=== PATIENT | female | born 1965 | race African-American/Black ===

== ENCOUNTER → 2021-01-26 | Emergency (ER) | payer OTHER ==
[~2021-01-26] VITALS: Ht 154.9 cm; Wt 171.5 kg
--- NOTE | ~2021-01-26 | EMS ---
[address] [address] EMS Patient Care Report Name: SANA PLUNKETT Room #: REG ANNA Ríos#: [id number] Admission: 01/26/21 Attend Phys: Discharge: Date of : 67 Report #: [id number] THIS REPORT FOR: //name// Report Transmitted: 01/26/2021 11:42 EMS Care Summary [place], [place]/[facility] Incident [id number] @ 01/26/2021 08:35 Incident Location [address] [facility] 213 Patient SANA PLUNKETT Female, 55 Years 1965 Patient Address [address] [place] [id number] Patient History Chronic Obstructive Pulmonary Disease (COPD),Diabetes,Hypertension (HTN),Hyperlipidemia,Gastro-Esophageal Reflux Disease (GERD),Morbid Obesity,Schizophrenia,Depression,Anxiety,Novel Coronavirus (COVID-19), Patient Allergies Penicillin allergy,Haldol,Other drug allergy, Chief Complaint abnormal lab values Disposition Transported No Lights/[place] Dispatch Reason Breathing Problem Transported To [facility] Narrative pt found ambulatory in [facility]. pt is a&o, breathing is mild to moderately labored. pt states she has been Covid positive since . pt lab work came back this morning and her D-Dymer value was high. pt to be eval at [address] [address] EMS Patient Care Report Name: SANA PLUNKETT Room #: REG [facility]..#: [id number] Admission: 01/26/21 Attend Phys: Discharge: Date of : 67 Report #: [id number] [facility], per staff. pt seats self on cot, transport w/o change Initial Vitals @08:47P: 109,R: 24,BP: 135/75,Pain: 10/10,GCS: 15,SpO2: 97,Revised Trauma: 12, Assessments @08:44MENTAL:No Abnormalities,SKIN:No Abnormalities,HEENT:Head/Face: No Abnormalities,LUNG SOUNDS:ABDOMEN:PELVIS//GI:EXTREMITIES:PULSE:NEURO:No Abnormalities, Impression COVID-19 - Confirmed by testing Procedures @08:44 ALS Assessment Response: Unchanged @08:45 Stretcher Response: Unchanged Timeline 08:33,Call Received 08:33,Dispatch Notified 08:35,Dispatched 08:36,En Route 08:40,On Scene 08:44,At Patient 08:44,ALS Assessment,Response: Unchanged 08:45,Stretcher,Response: Unchanged 08:47,BP: 135/75 M,PULSE: 109,RR: 24 R,SPO2: 97 Ox,ETCO2: ,BG: ,PAIN: 10,GCS: 15, 08:48,Depart Scene 08:57,At Destination 09:22,Call Closed Disclaimer v1.1 Copyright 2020 [employer] This EMS Care Summary contains data elements from the applicable legal record (which may be displayed differently). It is designed to provide pertinent information for the following purposes: continuity of care, clinical quality, and state data reporting. The complete legal record is available to ED staff and administrators of the receiving hospital in [facility]'s Patient Tracker. All data is provided "as is."
[2021-01-26 09:35] LABS: ABSOLUTE NEUTROPHILS 4.9 thou/uL (1.4-8.2); BASOPHILS 0.5 % (0.0-2.0); EOSINOPHILS 3.5 % (0.0-3.0); HEMATOCRIT 44.1 % (37.0-47.0); LYMPHOCYTES 22.4 % (24.0-44.0); MCH 27.6 pg (26.0-34.0); MCHC 31.7 g/dL (28.0-37.0); MCV 87.2 fL (80.0-100.0); MONOCYTES 7.2 % (1.0-8.0); PLATELET COUNT 234 thou/uL (150-400); POLYS 66.4 % (36.0-66.0); RBC 5.06 mil/uL (4.20-5.00); RDW 14.1 % (10.5-14.5); WBC 7.4 thou/uL (4.0-11.0)
[2021-01-26 09:42] LABS: CALCIUM 9.4 mg/dL (8.5-10.1); POTASSIUM 4.2 mmol/L (3.5-5.1)
[2021-01-26 12:04] VITALS: BP 117/93
== END ==
LOC: ER 09:03
PROVIDERS: Emergency Medicine
DX: U07.1 COVID-19 (principal); D72.828 Other elevated white blood cell count; J44.9 Chronic obstructive pulmonary disease, unspecified; I10 Essential (primary) hypertension; K21.9 Gastro-esophageal reflux disease without esophagitis; E66.9 Obesity, unspecified; F20.9 Schizophrenia, unspecified; F41.9 Anxiety disorder, unspecified; E11.39 Type 2 diabetes mellitus with other diabetic ophthalmic complication; Z86.718 Personal history of other venous thrombosis and embolism; Z68.45 Body mass index [BMI] 70 or greater, adult; Z86.16 Personal history of COVID-19; Z88.0 Allergy status to penicillin; Z91.02 Food additives allergy status; Z88.5 Allergy status to narcotic agent; Z88.8 Allergy status to other drugs, medicaments and biological substances; Z91.018 Allergy to other foods; Z77.22 Contact with and (suspected) exposure to environmental tobacco smoke (acute) (chronic)

== ENCOUNTER 2021-04-05 20:37 | Emergency (ER) | payer OTHER ==
[~2021-04-05] VITALS: Ht 152.4 cm; Wt 158.8 kg
--- NOTE | ~2021-04-05 | EMS ---
[facility] [address] [place] [address] EMS Patient Care Report Name: SANA PLUNKETT Room #: DEP ANNA Ríos#: [id number] Admission: 04/05/21 Attend Phys: Discharge: 04/06/21 Date of : 67 Report #: [id number] THIS REPORT FOR: //name// Report Transmitted: 04/06/2021 14:02 EMS Care Summary [place], [place]/[facility] Incident [id number] @ 04/05/2021 20:03 Incident Location [address] [facility] Patient SANA PLUNKETT Female, 55 Years 1965 Patient Address [address] [place], [place] [id number] Patient History Chronic Obstructive Pulmonary Disease (COPD),Diabetes,Hypertension (HTN),Hyperlipidemia,Gastro-Esophageal Reflux Disease (GERD),Morbid Obesity,Schizophrenia,Depression,Anxiety,Novel Coronavirus (COVID-19), Patient Allergies Penicillin allergy,Haldol,Other drug allergy, Patient Medications Ibuprofen, Lantus, Acetaminophen, Amlodipine, Gabapentin, Loratadine, Furosemide, Atorvastatin, Chief Complaint BACK PAIN Disposition Transported No Lights/[place] [facility] Reason Falls Transported To [facility] Narrative RESPONDED TO FALL AT [facility]. UPON ARRIVAL PT FOUND LAYING ON LEFT SIDE ON [facility] [address] [place] [address] EMS Patient Care Report Name: SANA PLUNKETT Room #: DEP ANNA Ríos#: [id number] Admission: 04/05/21 Attend Phys: Discharge: 04/06/21 Date of : 67 Report #: [id number] GROUND. PT IS ALERT AND ORIENTED. PT REPORTS TRYING TO STAND UP FROM CHAIR AND FALLING FACE FIRST ONTO GROUND .PT REPORTS BACK AND NECK PAIN. PT REPORTS POSITIVE LOC BUT FALL WAS UNWITNESSED SO UNKNOWN HOW LONG SHE WAS OUT. PT DENIES BLOOD THINNERS. PT HAS NO OBVIOUS INJURIES NOTED TO FACE OR HEAD. PT WAS NOT ABLE TO BE PLASCED IN C COLLAR DUE TO NOT FITTING. PT WAS ROLLED [facility]NTO [facility] WITH C SPINE PRECAUTIONS. PT CARRIED TO COT AND SEATBELTS APPLIED. PT VITALS, IV, 3LEAD AND IV OBTAINED. PT TRANSPORTED TO [facility] WITH NO CHANGES. PT WAS TEAM LIFTED TO BED WITH SPINAL PRECAUTIONS TAKEN HANDRAILS UP AND REPORT GIVEN TO NURSE. Initial Vitals @20:24P: 93,SpO2: 96, @20:19P: 98,R: 18,BP: 142/82,Glucose: 187,SpO2: 93, @20:25P: 95,R: 18,BP: 146/84,Pain: 10/10,GCS: 15,CO: 11,SpO2: 96,Revised Trauma: 12, Assessments @20:15MENTAL:Time Oriented,Event Oriented,Person Oriented,Place Oriented,SKIN:HEENT:Neck/Airway: No Abnormalities,LUNG SOUNDS:General: Diarrhea,ABDOMEN:General: Diarrhea,PELVIS//GI:Rectal Bleeding,EXTREMITIES:Left Arm: No Abnormalities,Right Arm: No Abnormalities,Left Leg: No Abnormalities,Right Leg: No Abnormalities,PULSE:Radial: 2+ Normal,NEURO: Impression Back Pain Procedures @20:15 ALS Assessment Response: UnchangedSucceeded @20:22 3-Lead ECG Response: UnchangedSucceeded @20:20 General Comments Response: Unchanged @20:25 IV Therapy - Saline Lock 5cc (22 ga) Site: Antecubital-Left Response: UnchangedSucceeded Timeline 20:01,Call Received 20:01,Dispatch Notified 20:03,Dispatched 20:04,En Route 20:10,On Scene 20:14,At Patient 20:15,ALS Assessment,Response: UnchangedSucceeded, 20:19,BP: 142/82 M,PULSE: 98,RR: 18 R,SPO2: 93 Ox,ETCO2: ,B,PAIN: ,GCS: , 20:20,General Comments,Response: Unchanged 20:22,3-Lead ECG,Response: UnchangedSucceeded, [facility] [address] [place] [address] EMS Patient Care Report Name: SANA PLUNKETT Room #: DEP [facility].#: [id number] Admission: 04/05/21 Attend Phys: Discharge: 04/06/21 Date of : 67 Report #: [id number] 20:24,BP: / M,PULSE: 93,RR: R,SPO2: 96 Ox,ETCO2: ,BG: ,PAIN: ,GCS: , 20:25,BP: 146/84 M,PULSE: 95,RR: 18 R,SPO2: 96 Ox,ETCO2: ,BG: ,PAIN: 10,GCS: 15, 20:25,IV Therapy - Saline Lock 5cc 22 ga Site: Antecubital-Left,Response: UnchangedSucceeded, 20:26,Depart Scene 20:34,At Destination 20:49,Call Closed Disclaimer v1.1 Copyright 2021 [employer] This EMS Care Summary contains data elements from the applicable legal record (which may be displayed differently). It is designed to provide pertinent information for the following purposes: continuity of care, clinical quality, and state data reporting. The complete legal record is available to ED staff and administrators of the receiving hospital in [employer]'s Patient Tracker. All data is provided "as is."
[2021-04-06 01:19] VITALS: BP 140/78
== END 2021-04-06 01:23 | disposition home or self-care (01) ==
LOC: ER 20:37
DX: S39.012A Strain of muscle, fascia and tendon of lower back, initial encounter (principal); J44.9 Chronic obstructive pulmonary disease, unspecified; I10 Essential (primary) hypertension; K21.9 Gastro-esophageal reflux disease without esophagitis; E11.9 Type 2 diabetes mellitus without complications; F41.9 Anxiety disorder, unspecified; Z88.0 Allergy status to penicillin; Z88.8 Allergy status to other drugs, medicaments and biological substances; W19.XXXA Unspecified fall, initial encounter; Y93.89 Activity, other specified; Y92.89 Other specified places as the place of occurrence of the external cause; Y99.8 Other external cause status